=== PATIENT | female | born 1965 | race Caucasian/White ===

== ENCOUNTER 2017-07-15 12:40 | Day surgery (SDC) | payer OTHER ==
[~2017-07-15] VITALS: Ht 149.9 cm; Wt 67.9 kg
[2017-07-15] MEDS ORDERED: VITAMIN D3 (13:36)
[2017-07-15] MEDS ORDERED: SIMVASTATIN (13:36)
[2017-07-15] MEDS ORDERED: VITAMIN D2 (13:36)
[2017-07-15] MEDS ORDERED: ALENDRONATE SODIUM (13:36)
[2017-07-15 13:37] VITALS: Ht 149.9 cm; Wt 67.9 kg
[2017-07-15 15:50] VITALS: BP 116/63; PULSE 62; RESP 18
[2017-07-15] MEDS ORDERED: FENTAnyl 50 MCG/ML VIAL ONE (16:18)
[2017-07-15] MEDS ORDERED: LIDOCAINE 2% (SDV) 5 ML INJ ONE (16:18)
[2017-07-15] MEDS ORDERED: MIDAZOLAM 1 MG/ML 2 ML INJ ONE (16:18)
[2017-07-15] MEDS ORDERED: PROPOFOL 20 ML ONE (16:18)
--- NOTE | 2017-07-15 17:04 | OPPN ---
Date/Time of Note Date/Time of Note DATE: 07/15/17 TIME: 16:37 Proc Note GI Procedure Date 07/15/17 Indication: other (Colorectal cancer screening) Pre-procedure Diagnosis Colorectal cancer screening Post-procedure Diagnosis Impression: Normal colonic mucosa to cecum. Moderate-sized internal hemorrhoids. Plan: Follow up as scheduled] High fiber diet Annual hemoccult stool testing [Screening colonoscopy in 10 years] . Procedure Performed: Colonoscopy Surgeon HERBERT MONTAGUE MD See signature line Ceramic Mold Designer none Anesthesia Type: MAC Anesthesiologist: HERBERT MONTAGUE MD Tourniquet Time none EBL none Transfusion required none Biopsy 1: none Grafts/Implants none Tubes/Drains none Complication(s) none Disposition: home Procedure Description After informed consent, with the patient/relatives understanding the procedure, its indications and potential risks and complications, including but not limited to: Allergic reaction, bleeding, perforation, infection, and after all pertinent questions were answered to the patient's satisfaction, the patient/ relatives signed the witnessed informed consent. Following this, premedication was administered slowly IV push under careful cardiovascular and respiratory monitoring with pulse OX[employer], automatic blood pressure, and filer helper. Once the sedative effect was achieved, the patient was placed in the left lateral decubitus position, digital rectal examination was performed. The colonoscope was then introduced and advanced under visual control throughout all segments of the colon including: the rectum, sigmoid, descending colon, splenic flexure, transverse colon, hepatic flexure, ascending colon and finally reaching the cecum which was clearly identified by transillumination, finger indentation and the ileocecal valve. Careful examination of the mucosa of the lower gastrointestinal tract both on insertion as well as withdrawal of the instrument disclosed the following findings: PREPARATION QUALITY: [Adequate], RECTAL EXAM: The anorectal area was visualized examined and digital rectal examination performed with the following findings: No evidence of perirectal disease, no masses. COLONIC MUCOSA: The mucosa of all segments of the colon was carefully examined and showed the following findings: the examined mucosa appears within normal limits. There is no evidence of inflammatory changes, diverticular formation, polyps or neoplasms, vascular malformation, or any other abnormality. Moderate-sized internal hemorrhoids are present. The instrument was then withdrawn, the patient tolerated the procedure well and was transferred out of the Endoscopy Suite awake and in good condition to continue recovery under observation. Copies To: CC: HERBERT MONTAGUE MD, MORDO MD Jul 15, 2017 17:04
[2017-07-15 17:15] VITALS: BP 127/79; PULSE 63; RESP 18
== END 2017-07-15 18:42 | disposition home or self-care (01) ==
LOC: GIL 12:40 → MERGE 12:40 → GIL 12:47
PROVIDERS: ATTEND Internal Medicine Gastroenterology
DX: Z12.11 Encounter for screening for malignant neoplasm of colon (principal); K64.8 Other hemorrhoids
CPT/HCPCS: 84703; J2250; J3010

== ENCOUNTER 2018-01-07 16:54 | Inpatient (IN) | END 2018-01-10 16:40 | disposition home or self-care (01) | DRG 419 ==